=== PATIENT | male | born 1965 | race Caucasian/White ===

== ENCOUNTER → 2020-06-22 | Outpatient (CLI) | payer BC ==
--- NOTE | 2020-06-22 18:09 | RAD ---
EXAM: FOOT RIGHT 3V 06/22/2020 12:00 AM CLINICAL INDICATION:Right foot pain COMPARISON:None TECHNIQUE:3 views of the right foot FINDINGS:No acute fracture or malalignment. There are juxta-articular erosions at the great toe MTP joint. No joint space narrowing. Possible tiny erosion at the tip of the great toe distal phalanx. There are osteophytes of the tarsometatarsal joints. Vascular calcifications are noted. Mild soft tissue swelling along the great toe MTP joint. IMPRESSION: Juxta articular erosions and mild soft tissue swelling at the great toe MTP joint. This is suspicious for gout. Correlate clinically. Electronically signed by: Natalie Fair MD (06/22/2020 6:06 PM) [id number]
== END ==
LOC: DXRAD 10:10
PROVIDERS: ATTEND Internal Medicine
DX: M25.774 Osteophyte, right foot (principal); M79.89 Other specified soft tissue disorders
CPT/HCPCS: 73630

== ENCOUNTER → 2021-02-08 | Outpatient (CLI) | payer BC ==
--- NOTE | 2021-02-09 12:12 | RAD ---
Three-view left first toe radiographs 02/08/2021 CLINICAL HISTORY: Crush injury to the left first toe. An AP digital radiograph of the left foot was obtained. Oblique and lateral radiographs of the left f irst toe were obtained. Soft tissue swelling is seen surrounding the left first toe. Small bony densi ties which likely represent small fracture fragments from the terminal tuft of the distal phalanx is seen which are mildly displaced distal soft tissues. No additional fracture is seen. Mild to moderate degenerative changes are seen throughout the interphalangeal joints along with the first MTP joint a nd left foot. IMPRESSION: Small comminuted fracture fragments are seen within the terminal tuft of the distal phala nx as discussed above. Electronically signed by: Chuck Romero MD (02/09/2021 12:09 PM) [id number]
== END ==
LOC: RAD 10:18
PROVIDERS: ATTEND Internal Medicine
DX: S97.112A Crushing injury of left great toe, initial encounter (principal); S92.422A Displaced fracture of distal phalanx of left great toe, initial encounter for closed fracture; X58.XXXA Exposure to other specified factors, initial encounter; Y93.89 Activity, other specified; Y92.89 Other specified places as the place of occurrence of the external cause; Y99.8 Other external cause status
CPT/HCPCS: 73660